=== PATIENT | female | born 1990 | race Caucasian/White ===

== ENCOUNTER 2019-04-09 15:08 | Inpatient (IN) | payer OTHER ==
[~2019-04-09] VITALS: Ht 144.8 cm; Wt 64.1 kg
[2019-04-09 15:15] VITALS: Ht 144.8 cm; Wt 64.1 kg
[2019-04-09 15:43] LABS: microscopic required? NO
[2019-04-09 15:53] LABS: UA SPECIFIC GRAVITY <=1.005 (1.005-1.035); urine erythrocyte NEGATIVE (NEGATIVE)
[2019-04-09 15:53] LABS: BASOPHIL % 0.2 % (0-2); PLATELET COUNT 149 x10^3mcL (130-400); RED CELL DISTRIBUTION WIDTH 12.8 % (11.5-14.5)
[2019-04-09 15:59] LABS: CALCIUM 7.6 mg/dL (8.5-10.1); CARBON DIOXIDE 25.8 mmol/L (21-32); CHLORIDE SERUM 104 mmol/L (98-107); CREATININE SERUM 0.7 mg/dL (0.6-1.0); GFR1 > 60 mL/min; GLUCOSE SERUM 116 mg/dL (74-106); POTASSIUM SERUM 3.6 mmol/L (3.5-5.1); SODIUM SERUM 139 mmol/L (136-145)
[2019-04-09 16:03] LABS: AMPHETAMINE QUAL UR NONE DETECTED (See below)
[2019-04-09 16:03] LABS: ALBUMIN 3.1 g/dL (3.4-5.0); ALKALINE PHOSPHATASE 71 U/L (46-116); ALT/SGPT 24 U/L (14-59); AST/SGOT 13 U/L (15-37); BILIRUBIN TOTAL 0.2 mg/dL (0.20-1.00); TOTAL PROTEIN, SERUM 6.8 g/dL (6.4-8.2)
[2019-04-09] MEDS ORDERED: PROZ10 PO (16:51)
[2019-04-09] MEDS ORDERED: KEPPRA1000 M1 PO (16:52)
[2019-04-09] MEDS ORDERED: EPZICOM1 TAB (16:52)
[2019-04-09 18:07] VITALS: BP 104/48
[2019-04-09 20:00] VITALS: BP 95/58
[2019-04-10 06:17] LABS: BASOPHIL % 0.4 % (0-2); PLATELET COUNT 137 x10^3mcL (130-400); RED CELL DISTRIBUTION WIDTH 13.2 % (11.5-14.5)
[2019-04-10 06:26] LABS: CALCIUM 7.6 mg/dL (8.5-10.1); CARBON DIOXIDE 27.8 mmol/L (21-32); CHLORIDE SERUM 107 mmol/L (98-107); CREATININE SERUM 0.6 mg/dL (0.6-1.0); GFR1 > 60 mL/min; GLUCOSE SERUM 90 mg/dL (74-106); SODIUM SERUM 142 mmol/L (136-145)
[2019-04-10 06:31] VITALS: BP 103/53
[2019-04-10 08:17] VITALS: BP 110/57
[2019-04-10 09:58] VITALS: BP 110/57
== END 2019-04-10 12:21 | disposition other institution (70) | DRG 918 ==
LOC: ED 15:08 → DU 16:45 → EDBEDREQ 16:45 → DU 17:55
PROVIDERS: Emergency Medicine; ADMIT Internal Medicine
DX: T43.222A Poisoning by selective serotonin reuptake inhibitors, intentional self-harm, initial encounter (principal); G40.909 Epilepsy, unspecified, not intractable, without status epilepticus; F32.9 Major depressive disorder, single episode, unspecified; Y92.89 Other specified places as the place of occurrence of the external cause; Z79.899 Other long term (current) drug therapy
CPT/HCPCS: G0378; G0480; J7042